=== PATIENT | female | born 2000 | race Caucasian/White ===

== ENCOUNTER 2024-02-10 17:36 | Emergency (ER) | payer BC, MEDICAID, SELFPAY ==
[2024-02-10 17:49] VITALS: BP 130/74; PULSE 82; RESP 18; TEMP 36.8; O2SAT 99; BMI 23.6
--- NOTE | 2024-02-10 18:04 | ED_ITS ---
HPI - Nausea/Vomiting/Diarrhea 2 General: Chief complaint: Nausea/Vomiting/Diarrhea Stated complaint: n/v, pt is 14 weeks preg Time Seen by Provider: 02/10/24 18:03 History of Present Illness: 23-year-old female comes in today with c omplaints of nausea and vomiting. Patient has a history of hyperemesis gravidarum with her first . This is patient's second and she is approximately 14 weeks along. Patient reports persistent symptoms. Patient has been seen at [place] emergency room and was given some Zofran with some improvement of her symptoms but has ran out of the Zofran. Patient denies any fever or bleeding in the stool or in emesis. Last menstrual cycle was 11/04/2023. Para 2 1. Patient appears nontoxic. Patient appears in no pain. Associated nausea: Yes Associated symtoms: Reports nausea Review of Systems 2 General: Reports: 10 or more systems reviewed and unremarkable except in HPI and below GI: Reports: nausea and vomiting Physical Exam 2 Const: COMMON NORMALS: alert HENMT: COMMON NORMALS: normocephalic HEAD & SCALP: normocephalic Neck/C-Spine: COMMON NORMALS: full ROM Resp: COMMON NORMALS: normal respiratory effort and clear to auscultation bilaterally AUSCULTATION: clear to auscultation bilaterally Cardio: COMMON NORMALS: regular rate and regular rhythm RATE: regular rate RHYTHM: regular rhythm GI: COMMON NORMALS: non-tender : COMMON NORMALS: Yes no CVA tenderness BLADDER/KIDNEY EXAM: Yes no CVA tenderness Back/Pelvis: COMMON NORMALS: no CVA tenderness Extremity: COMMON NORMALS: no pedal edema Neuro: SENSORIUM/ORIENTATION: Yes alert Skin: COMMON NORMALS: turgor normal GENERAL SKIN EXAM: turgor normal Course 2 Vital Signs: Vital signs: Vital Signs Temperature 98.2 F 02/10/24 17:49 Pulse Rate 97 02/10/24 19:15 Respiratory Rate 16 02/10/24 19:15 Blood Pressure 133/85 02/10/24 19:15 Pulse Oximetry 98 02/10/24 19:15 Oxygen Delivery Me thod Room Air 02/10/24 19:15 MDM - Nausea/Vomiting/Diarrhea Medical Decision Making 23-year-old female comes in today with hyperemesis gravidarum. Patient had previous problems with her first . Patient has already been at 1 emergency room about 1 week ago for similar symptoms and was treated with Zofran and released. Patient reports some improvement with the Zofran but had ran out of the medicine and comes in tonight due to the persistent and worsening symptoms. Patient appears nontoxic. Patient appears in no pain. Vital signs normal. Differential diagnosis includes dehydration, gallbladder disease, hyperemesis gravidarum, UTI. CBC and CMP were unremarkable. Urinalysis had nitrates and some white blood cells along with hyaline casts. Patient was given 2 L of IV fluid crystalloid solution for hydration. Patient was able to tolerate some oral fluids. Patient was treated for urinary tract infection with 1 g Rocephin. Patient be continued on Reglan and cephalexin. Patient reports understanding of care plan and need for follow-up or return. Case management was requested to assist patient with [facility] referral. Lab Data 02/10/24 18:29 02/10/24 18:29 Radiology Impressions Obstetrics Ultrasound 02/10/24 18:43 IMPRESSION: Single live intrauterine . Negative for abnormality Laboratory Results WBC 7.41 10^3/uL (3.29-11.43) 02/10/24 18:29 RBC 4.64 10^6/uL (3.85-5.65) 02/10/24 18: Hgb 14.20 g/dL (11.27-16.99) 02/10/24 18: Hct 40.4 % (36-47) 02/10/24 18: MCV 87.1 fl (85-98) 02/10/24 18: MCH 30.6 pg (27-33) 02/10/24 18: MCHC 35.1 g/dL (30-55) 02/10/24 18:29 RDW 12.6 % (12.1-15.1) 02/10/24 18: Plt Count 292 10^3/cmm (157-399) 02/10/24 18: MPV 9.7 fL (7.4-10.4) 02/10/24 18: Neut % (Auto) 58.2 % 02/10/24 18: Lymph % (Auto) 35.8 % 02/10/24 18: [place] % (Auto) 5.1 % 02/10/24 18: Eos % (Auto) 0.1 % 02/10/24 18: Baso % (Auto) 0.5 % 02/10/24 18: Neut # (Auto) 4.31 10^3/uL (1.8-7.7) 02/10/24 18: Lymph # (Auto) 2.7 10^3/uL (0.8-4.8) 02/10/24 18: [place] # (Auto) 0.4 10^3/uL (0.2-0.9) 02/10/24 18: Eos # (Auto) 0.0 10^3/uL (0.0-0.8) 02/10/24 18: Baso # (Auto) 0.0 10^3/uL (0.0-0.1) 02/10/24 18: Nucleated RBC % (auto) 0 % 02/10/24 18: Nucleated RBCs # 0.0 /100WBC 02/10/24 18: Sodium 134 mmol/L (136-145) L 02/10/24 18: Potassium 3.5 mmol/L (3.5-5.1) 02/10/24 18: Chloride 100 mmol/L (98-107) 02/10/24 18: Carbon Dioxide 22 mmol/L (22-29) 02/10/24 18: Anion Gap 15.5 (5-19) 02/10/24 18: BUN 11 mg/dL (6-20) 02/10/24 18: Creatinine 0.5 mg/dL (0.5-0.9) 02/10/24 18: GFR Calculation 151.6 mL/min (90-130) H 02/10/24 18: Glucose 76 mg/dL (65-115) 02/10/24 18: Calculated Osmolality 276 mOsm/kg (285-295) L 02/10/24 18: Calcium 9.0 mg/dL (8.5-10.5) 02/10/24 18: Total Bilirubin 0.2 mg/dL (0.15-1.2) 02/10/24 18: AST 11 U/L (0-32) 02/10/24 18: ALT < 5 U/L (0-33) 02/10/24 18:29 Alkaline Phosphatase 59 U/L (35-105) 02/10/24 18:29 Total Protein 6.9 g/dL (6.6-8.7) 02/10/24 18:29 Albumin 4.1 g/dL (3.5-5.2) 02/10/24 18:29 Globulin 2.8 g/dL (1.3-4.6) 02/10/24 18:29 Lipase 31 U/L (13-60) 02/10/24 18:29 Urine Color Yellow (Yellow) 02/10/24 19:07 Urine Appearance Hazy (CLEAR) A 02/10/24 19:07 Urine pH 5 (5-7) 02/10/24 19:07 Ur Specific [place] 1.025 (1.005-1.030) 02/10/24 19:07 Urine Protein 1+ (Negative) H 02/10/24 19:07 Urine Glucose (UA) Norm (Normal) 02/10/24 19:07 Urine Ketones 2+ (Negative) H 02/10/24 19:07 Urine Blood Neg (Negative) 02/10/24 19:07 Urine Nitrate Positive (Negative) H 02/10/24 19:07 Urine Bilirubin 1+ (Negative) H 02/10/24 19:07 Urine Urobilinogen 4 mg/dL (Negative) H 02/10/24 19:07 Ur Leukocyte Esterase Trace (Negative) H 02/10/24 19:07 Urine RBC 0-4 /hpf (0-2) H 02/10/24 19:07 Urine WBC 5-10 /hpf (0-5) H 02/10/24 19:07 Ur Squamous Epith Cells 0-4 /hpf (0-5) H 02/10/24 19:07 Amorphous Sediment Trace /hpf 02/10/24 19:07 Urine Bacteria 1+ /hpf (NONE) H 02/10/24 19:07 Hyaline Casts 0-4 /lpf H 02/10/24 19:07 Urine Mucus 2+ /hpf 02/10/24 19:07 All radiology interpretation(s) finalized by discharge Discharge Plan Discharge Patient Disposition: Home Clinical Impression: Hyperemesis gravidarum, UTI (urinary tract infection) due to Enterococcus Condition: Stable Prescriptions: New cephalexin 500 mg capsule 500 mg PO BID 7 Days Qty: 14 0RF metoclopramide HCl 10 mg tablet 10 mg PO Q6H PRN (Reason: nausea and vomiting) Qty: 20 0RF Discharge Orders: Discharge ED (Routine); Ordered 02/10/24 Ordered By: Matteo Mccoy Discharge Diet: Advance as tolerated Discharge Activity: Increase activity as tolerated Patient Instructions: Hyperemesis Gravidarum (ED) Activity Restrictions/Additional Instructions: Drink frequent sips of Pedialyte or Gatorade type solution. Try to eat a starchy foods sometimes that will help with the nausea. Take medications as directed for nausea and vomiting. Take medications as directed for urinary tract infection. Follow-up with primary care. Case management will contact you for follow-up with [facility]. Return to ED for worsening symptoms or new concerns. Coding Level of Care Code ED Application Support Manager for Praful Singh
[2024-02-10] MEDS: sodium chloride 0.9% 1,000 ML 999 ML IV ×2 (18:19→19:11)
[2024-02-10] MEDS: metoclopramide 5 mg/mL SDV 2 mL 10 MG IVP (18:20)
[2024-02-10 18:22] VITALS: BP 132/75; PULSE 80; O2SAT 99
[2024-02-10] MEDS: diphenhydrAMINE 50 mg/mL SDV 1mL IVP (18:23)
[2024-02-10 18:34] LABS: Basophils % 0.5 %; Eosinophils % 0.1 %; Hematocrit 40.4 % (36-47); Lymphocytes # 2.7 10^3/uL (0.8-4.8); Lymphocytes % 35.8 %; Mean Corpuscular HGB Conc 35.1 g/dL (30-55); Mean Corpuscular Hemoglobin 30.6 pg (27-33); Mean Corpuscular Volume 87.1 fl (85-98); Mean Platelet Volume 9.7 fL (7.4-10.4); Monocytes # 0.4 10^3/uL (0.2-0.9); Monocytes % 5.1 %; Neutrophils # 4.31 10^3/uL (1.8-7.7); Neutrophils % 58.2 %; Nucleated Red Blood Cells % 0 %; Platelet Count 292 10^3/cmm (157-399); Red Blood Count 4.64 10^6/uL (3.85-5.65); Red Cell Distribution Width 12.6 % (12.1-15.1); White Blood Count 7.41 10^3/uL (3.29-11.43)
[2024-02-10 18:38] VITALS: BP 119/79; PULSE 65; O2SAT 100
--- NOTE | 2024-02-10 18:43 | USR_ITS ---
PROCEDURE INFORMATION: Exam: US , Limited Exam date and time: 02/10/2024 6:50 PM Age: 23 years old Clinical indication: complicated by abdominal or pelvic pain; Generalized abdominal pain; Second trimester (14 weeks 0 days to 27 weeks 6 days); Gestational age or lmp: 14w0d; ; Additional info: Fall injury LABS AND CLINICAL REPORTS: Gestational age (Established): 14 w 0 d Estimated due date (Established): 08/10/2024 TECHNIQUE: Imaging protocol: Real-time ultrasound of the maternal uterus with image documentation. Exam focused on the clinical indication. COMPARISON: No relevant prior studies available. FINDINGS: Gestation: Single intrauterine . Breech presentation. heart rate: 159 bpm BIOMETRY: Estimated weight: 93.47 g. EFW by [place], [place], [place] 1984 Abdominal circumference (AC): 7.8 cm. EGA (AC) is 14 w 2 d. 65 % percentile Femur length (FL): 1.37 cm. EGA (FL) is 14 w 0 d. 45.8 % percentile FL/AC: 17.56 MATERNAL: Cervix: Cervical length measures 3.2 cm. US/US OB limited [id number] IMPRESSION: Single live intrauterine . Negative for abnormality
[2024-02-10 19:00] LABS: Alanine Aminotransferase < 5 U/L (0-33); Albumin Level 4.1 g/dL (3.5-5.2); Alkaline Phosphatase 59 U/L (35-105); Anion Gap 15.5 (5-19); Aspartate Amino Transferase 11 U/L (0-32); Blood Urea Nitrogen 11 mg/dL (6-20); Carbon Dioxide 22 mmol/L (22-29); Chloride 100 mmol/L (98-107); Creatinine Clr Calc Pharmacy 145.3528; Globulin 2.8 g/dL (1.3-4.6); Glomerular Filtration Rate 151.6 mL/min (90-130); Glucose 76 mg/dL (65-115); Lipase 31 U/L (13-60); Osmolality Calculated 276 mOsm/kg (285-295); Potassium 3.5 mmol/L (3.5-5.1); Sodium 134 mmol/L (136-145); Total Bilirubin 0.2 mg/dL (0.15-1.2); Total Protein 6.9 g/dL (6.6-8.7)
[2024-02-10 19:15] VITALS: BP 133/85; PULSE 97; RESP 16; O2SAT 98
[2024-02-10 19:37] LABS: Add Urine Microscopic? YES; Amorphous Sediment Urine TRACE /hpf; Bacteria Urine 1+ /hpf; Bilirubin Urine 1+ (Negative); Blood Urine Neg (Negative); Glucose Urine UA Norm (Normal); Hyaline Casts Urine 0-4 /lpf; Ketones Urine 2+ (Negative); Leukocyte Esterase Urine Trace (Negative); Mucus Urine 2+ /hpf; Nitrate Urine Positive (Negative); Protein Urine 1+ (Negative); RBC Urine 0-4 /hpf (0-2); Specific Gravity, Urine 1.025 (1.005-1.030); Squamous Epithelial Cell Urine 0-4 /hpf (0-5); Urine Appearance Hazy (CLEAR); Urine Color Yellow (Yellow); Urobilinogen Urine 4 mg/dL (Negative); pH Urine 5 (5-7)
[2024-02-10] MEDS: cefTRIAXone 1,000 MG in sodium chloride 0.9% (plus) 50 ML 100 MG IV (19:57)
--- NOTE | 2024-02-10 20:35 | PC.NURSE ---
keflex reglan was sent home with pt per dr wilkerson
[2024-02-10 20:37] VITALS: BP 122/75; PULSE 72; RESP 16; O2SAT 100
--- NOTE | 2024-02-11 12:24 | DCPLANNER ---
A message was sent to [email or web address] on 02/11/24 at [phone]. [facility] to contact patient for an appt
== END 2024-02-10 20:44 | disposition home or self-care (01) ==
PROVIDERS: Emergency Medicine; Emergency Provider Nurse Practitioner Family
DX: O21.0 Mild hyperemesis gravidarum (principal); O23.42 Unspecified infection of urinary tract in pregnancy, second trimester; B95.2 Enterococcus as the cause of diseases classified elsewhere; N39.0 Urinary tract infection, site not specified; Z3A.14 14 weeks gestation of pregnancy
CPT/HCPCS: 76815; 80053; 81001; 83690; 85025; 96365; 96375; 99284; J0696; J1200; J2765; J7030